=== PATIENT | female | born 1970 | race Two or more races ===

== ENCOUNTER 2020-06-20 06:21 | Day surgery (SDC) | payer OTHER ==
[~2020-06-20] VITALS: Ht 154.9 cm; Wt 86.0 kg
[~2020-06-20 06:21] MED LIST: ALDACTONE25 MG PO; AMLO5 PO; ASPI81CH PO; ATOR10 PO; ATOR20 PO; CARV3.125 PO; CLOP75 PO; Catapres0.2 MG PO; LISI20 PO; METF500 PO; POTA10T PO
[2020-06-20] MEDS ORDERED: FURO20 PO (07:29)
--- NOTE | 2020-06-20 09:58 | NUR ---
DR MCDONNELL TALKING TO PT R/T PLAN OF CARE, ORDERED KLONIPIN, THEN CHANGED ORDER TO NICARDIPINE 1 MG IV NOW FOR HYPERTENSION. CHANGED CUFF TO L BICEP, FROM L WRIST. SYSTOLIC NOW IN THE 80'S, GAVE 0.5 MG NICARDPINE IV AND WILL MONITOR BP, PT UP TO BTR, SLIGHTLY UNSTABLE ON FEET, BACK IN RECLINER, BOYFRIEND PRESENT, BREAKFAST RE-ORDERED
--- NOTE | 2020-06-20 12:14 | NUR ---
PT DRESSED, IV DC'D INTACT, TR BAND REMOVED, DRESSING AND R WRIST SPLINT PLACED, SITE STABLE, HELD THE SECOND 0.5 NICARDIPINE PER V/O FROM DR MCDONNELL R/T STABLE BP'S NOW. (ONLY GAVE THE 0.5 OF 1 MG ORDERED THIS AM)
== END 2020-06-20 12:15 | disposition home or self-care (01) ==
LOC: MHTC 06:21
PROC: 4A023N7 Measurement of Cardiac Sampling and Pressure, Left Heart, Percutaneous Approach (ICD-10-PCS; principal; 2020-06-20)
PROC: B2111ZZ Fluoroscopy of Multiple Coronary Arteries using Low Osmolar Contrast (ICD-10-PCS; principal; 2020-06-20)
DX: I25.10 Atherosclerotic heart disease of native coronary artery without angina pectoris (principal); I35.0 Nonrheumatic aortic (valve) stenosis; I10 Essential (primary) hypertension; E78.5 Hyperlipidemia, unspecified; E11.9 Type 2 diabetes mellitus without complications; R00.1 Bradycardia, unspecified; E66.9 Obesity, unspecified; Z68.35 Body mass index [BMI] 35.0-35.9, adult; Z79.82 Long term (current) use of aspirin; Z79.02 Long term (current) use of antithrombotics/antiplatelets; Z79.899 Other long term (current) drug therapy; Z87.891 Personal history of nicotine dependence; Z51.5 Encounter for palliative care
CPT/HCPCS: 82947; 93458; 99152; 99153; C1769; C1894; J1644; J2250; J3010; J7030; J7050; Q9967

== ENCOUNTER → 2020-11-24 | Outpatient (CLI) | payer OTHER ==
[~2020-11-24] MED LIST changes: +FURO20 PO
== END ==
LOC: LAB SHORT 15:06 → LAB 15:06
PROVIDERS: Nurse Practitioner Family
DX: Z12.72 Encounter for screening for malignant neoplasm of vagina (principal)
CPT/HCPCS: 87070; 87205; G0145

== ENCOUNTER 2022-02-09 09:30 | Emergency (ER) | payer OTHER | END 2022-02-09 10:36 | disposition home or self-care (01) | LOC: ER 09:30 | DX: S86.811A Strain of other muscle(s) and tendon(s) at lower leg level, right leg, initial encounter (principal); Z87.891 Personal history of nicotine dependence; Z79.84 Long term (current) use of oral hypoglycemic drugs; Z79.82 Long term (current) use of aspirin; Z79.899 Other long term (current) drug therapy | CPT/HCPCS: 99282 ==

== ENCOUNTER 2025-02-19 09:07 | Emergency (ER) | payer BC ==
[~2025-02-19] VITALS: Ht 154.9 cm; Wt 93.4 kg
[~2025-02-19 09:07] MED LIST changes: +CYCL10 PO; +Voltaren100 GM TOP
[2025-02-19 09:33] VITALS: BP 180/88
[2025-02-19] MEDS ORDERED: HYDROcodone 5-APAP 325 TAB PO ONE (09:40)
[2025-02-19] MEDS ORDERED: HYDR1TAB94 PO (09:42)
== END 2025-02-19 10:16 | disposition home or self-care (01) ==
LOC: ER 09:07
DX: S49.92XA Unspecified injury of left shoulder and upper arm, initial encounter (principal); I10 Essential (primary) hypertension; Z79.899 Other long term (current) drug therapy; E78.5 Hyperlipidemia, unspecified; Z87.891 Personal history of nicotine dependence; X58.XXXA Exposure to other specified factors, initial encounter
CPT/HCPCS: 73030; 99283-25; A9270